=== PATIENT | male | born 1980 | race Caucasian/White ===

== ENCOUNTER 2020-02-24 02:08 | Inpatient (IN) | payer OTHER ==
[~2020-02-24] VITALS: Ht 172.7 cm; Wt 59.0 kg
[2020-02-24 14:44] LABS: BUN/CREATININE RATIO 32 (0-10)
[2020-02-25 04:58] LABS: HEMOGLOBIN 10.8 gm/dl (14.0-17.5); RED BLOOD COUNT 3.28 M/UL (4.20-5.50); WHITE BLOOD COUNT 7.1 K/UL (4.5-11.0)
[2020-02-25 05:17] LABS: BUN/CREATININE RATIO 24 (0-10)
[2020-02-25 11:01] LABS: BORDETELLA PARAPERTUSSIS Not Detected (Not Detectd); BORDETELLA PERTUSSIS Not Detected (Not Detectd); CHLAMYDIA PNEUMONIAE Not Detected (Not Detectd); CORONAVIRUS HKU1 Not Detected (Not Detectd); CORONAVIRUS NL63 Not Detected (Not Detectd); CORONAVIRUS OC43 Not Detected (Not Detectd); CORONOAVIRUS 229E Not Detected (Not Detectd); HUMAN METAPNEUMOVIRUS Not Detected (Not Detectd); HUMAN RHINOVIRUS/ENTEROVIRUS Not Detected (Not Detectd); INFLUENZA A Not Detected (Not Detectd); INFLUENZA B Not Detected (Not Detectd); MYCOPLASMA PNEUMONIAE Not Detected (Not Detectd); PARAINFLUENZA VIRUS 1 Not Detected (Not Detectd); PARAINFLUENZA VIRUS 2 Not Detected (Not Detectd); PARAINFLUENZA VIRUS 3 Not Detected (Not Detectd); PARAINFLUENZA VIRUS 4 Not Detected (Not Detectd); RESPIRATORY SYNCYTIAL VIRUS Not Detected (Not Detectd)
[2020-02-25 12:07] LABS: SARS-CoV-2 NOT DETECTED (Not Detectd)
[2020-02-26 07:53] LABS: HEMOGLOBIN 11.4 gm/dl (14.0-17.5); RED BLOOD COUNT 3.47 M/UL (4.20-5.50); WHITE BLOOD COUNT 8.2 K/UL (4.5-11.0)
[2020-02-26 08:08] LABS: BUN/CREATININE RATIO 19 (0-10)
--- NOTE | 2020-02-26 20:07 | NUR ---
NOTIFIED DR DONALDSON THAT PT'S BLOOD CULTURES GROWING GRAM POSITIVE COCCI. PT CURRENTLEY RECIEVING VANCOMYCIN AND ZOSYN. RECIEVED NO NEW ORDERS. WILL CONTINUE TO MONITOR.
[2020-02-27 06:38] LABS: HEMOGLOBIN 11.4 gm/dl (14.0-17.5); RED BLOOD COUNT 3.49 M/UL (4.20-5.50)
[2020-02-27 06:57] LABS: BUN/CREATININE RATIO 21 (0-10)
[2020-02-28 06:42] LABS: HEMOGLOBIN 11.2 gm/dl (14.0-17.5); RED BLOOD COUNT 3.39 M/UL (4.20-5.50); WHITE BLOOD COUNT 7.9 K/UL (4.5-11.0)
[2020-02-28 06:50] LABS: BUN/CREATININE RATIO 25 (0-10)
[2020-02-29 06:33] LABS: HEMOGLOBIN 11.4 gm/dl (14.0-17.5); RED BLOOD COUNT 3.43 M/UL (4.20-5.50); WHITE BLOOD COUNT 7.9 K/UL (4.5-11.0)
[2020-02-29 06:53] LABS: BUN/CREATININE RATIO 25 (0-10)
[2020-03-01 06:26] LABS: HEMOGLOBIN 10.9 gm/dl (14.0-17.5); RED BLOOD COUNT 3.29 M/UL (4.20-5.50)
[2020-03-01 06:52] LABS: BUN/CREATININE RATIO 28 (0-10)
[2020-03-02 04:15] LABS: HEMOGLOBIN 9.6 gm/dl (14.0-17.5)
[2020-03-02 04:18] LABS: RED BLOOD COUNT 2.94 M/UL (4.20-5.50); WHITE BLOOD COUNT 7.7 K/UL (4.5-11.0)
[2020-03-03 04:14] LABS: HEMOGLOBIN 9.3 gm/dl (14.0-17.5); RED BLOOD COUNT 2.83 M/UL (4.20-5.50); WHITE BLOOD COUNT 7.7 K/UL (4.5-11.0)
[2020-03-04 03:38] LABS: BUN/CREATININE RATIO 21 (0-10)
[2020-03-04 16:13] LABS: HEMOGLOBIN 10.6 gm/dl (14.0-17.5); WHITE BLOOD COUNT 8.1 K/UL (4.5-11.0)
[2020-03-04 16:14] LABS: RED BLOOD COUNT 3.19 M/UL (4.20-5.50)
[2020-03-05 08:26] LABS: HEMOGLOBIN 10.4 gm/dl (14.0-17.5); RED BLOOD COUNT 3.18 M/UL (4.20-5.50); WHITE BLOOD COUNT 6.8 K/UL (4.5-11.0)
[2020-03-05 08:47] LABS: BUN/CREATININE RATIO 21 (0-10)
[2020-03-06 06:55] LABS: BUN/CREATININE RATIO 19 (0-10)
[2020-03-07 04:34] LABS: BUN/CREATININE RATIO 19 (0-10)
--- NOTE | 2020-03-08 12:23 | NUR ---
03/08/2020 1210 BEING VERY DEMANDING AND USING FOUL LANGUAGE, VERY DISRESPECTFUL AND MAKING RUDE COMMENTS TO STAFF, DEMANDING MORE PAIN MEDS. 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
[2020-03-09 05:21] LABS: RED BLOOD COUNT 2.56 M/UL (4.20-5.50); WHITE BLOOD COUNT 5.7 K/UL (4.5-11.0)
[2020-03-09 05:24] LABS: HEMOGLOBIN 8.4 gm/dl (14.0-17.5)
[2020-03-09 05:45] LABS: BUN/CREATININE RATIO 16 (0-10)
[2020-03-10 07:35] LABS: HEMOGLOBIN 8.7 gm/dl (14.0-17.5); RED BLOOD COUNT 2.76 M/UL (4.20-5.50); WHITE BLOOD COUNT 6.1 K/UL (4.5-11.0)
[2020-03-10 07:52] LABS: BUN/CREATININE RATIO 16 (0-10)
[2020-03-10] MEDS ORDERED: CUBICIN 500 MG500 MG IV (19:37)
[2020-03-10] MEDS ORDERED: CEFEPIME HCL2 GM IV (19:37)
[2020-03-11 03:45] LABS: RED BLOOD COUNT 2.71 M/UL (4.20-5.50); WHITE BLOOD COUNT 5.9 K/UL (4.5-11.0)
[2020-03-11 04:17] LABS: BUN/CREATININE RATIO 19 (0-10)
[2020-03-11] MEDS ORDERED: FERROUS SULFAT325 M2 PO (11:10)
[2020-03-11] MEDS ORDERED: SENNA LAX8.6 MG PO (11:10)
[2020-03-11] MEDS ORDERED: THERAGRAN M TAB1 EA PO (11:10)
[2020-03-11] MEDS ORDERED: PERCOCET 5/325 T1 EA PO (11:10)
[2020-03-11] MEDS ORDERED: LOPRESSOR 25 MG25 MG PO (11:10)
[2020-03-12 04:02] LABS: HEMOGLOBIN 9.2 gm/dl (14.0-17.5); RED BLOOD COUNT 2.8 M/UL (4.20-5.50); WHITE BLOOD COUNT 6.4 K/UL (4.5-11.0)
[2020-03-12 04:25] LABS: BUN/CREATININE RATIO 17 (0-10)
[2020-03-15 06:16] LABS: BUN/CREATININE RATIO 16 (0-10)
[2020-03-15 06:42] LABS: HEMOGLOBIN 8.5 gm/dl (14.0-17.5); RED BLOOD COUNT 2.69 M/UL (4.20-5.50); WHITE BLOOD COUNT 5.3 K/UL (4.5-11.0)
[2020-03-17 05:04] LABS: HEMOGLOBIN 9.6 gm/dl (14.0-17.5); WHITE BLOOD COUNT 5.4 K/UL (4.5-11.0)
[2020-03-17 05:11] LABS: BUN/CREATININE RATIO 19 (0-10)
[2020-03-17 05:14] LABS: RED BLOOD COUNT 2.99 M/UL (4.20-5.50)
[2020-03-19] MEDS ORDERED: PERCOCET 5-3251 EACH PO (09:41)
--- NOTE | 2020-03-19 11:45 | NUR ---
ATTEMPTED TO GIVE REPORT ADMITTING NURSE WILL CALL BACK UNABLE TO GET AT THIS TIME
--- NOTE | 2020-03-19 13:34 | NUR ---
REPORT GIVEN TO GWEN PATIÑO NURSE AT [facility]
--- NOTE | 2020-03-19 14:12 | NUR ---
PATIENT UNABLE TO SIT IN CHAIR FOR A LONG PERIOD OF TIME.
== END 2020-03-19 22:00 | DRG 853 ==
LOC: PROG CARE 12:09 → M/S 12:09 → CCU 02-29 18:09 → PROG CARE 03-01 23:49 → M/S 03-05 19:22
PROVIDERS: Family Medicine; Internal Medicine; Internal Medicine Infectious Disease; Physician Assistant Medical; ADMIT Internal Medicine
PROC: B24BZZZ Ultrasonography of Heart with Aorta (ICD-10-PCS; principal; 2020-02-25)
PROC: 0SG30K1 Fusion of Lumbosacral Joint with Nonautologous Tissue Substitute, Posterior Approach, Posterior Column, Open Approach (ICD-10-PCS; 2020-03-03)
PROC: 0SBF0ZZ Excision of Right Ankle Joint, Open Approach (ICD-10-PCS; 2020-03-03)
PROC: 0SG00K1 Fusion of Lumbar Vertebral Joint with Nonautologous Tissue Substitute, Posterior Approach, Posterior Column, Open Approach (ICD-10-PCS; 2020-03-03)
PROC: 01NB0ZZ Release Lumbar Nerve, Open Approach (ICD-10-PCS; 2020-03-03)
PROC: 0SB20ZZ Excision of Lumbar Vertebral Disc, Open Approach (ICD-10-PCS; 2020-03-03)
PROC: 02HV33Z Insertion of Infusion Device into Superior Vena Cava, Percutaneous Approach (ICD-10-PCS; 2020-03-13)
PROC: B548ZZA Ultrasonography of Superior Vena Cava, Guidance (ICD-10-PCS; 2020-03-13)
DX: A41.02 Sepsis due to Methicillin resistant Staphylococcus aureus (principal); G06.1 Intraspinal abscess and granuloma; J18.9 Pneumonia, unspecified organism; M46.27 Osteomyelitis of vertebra, lumbosacral region; M00.071 Staphylococcal arthritis, right ankle and foot; N17.9 Acute kidney failure, unspecified; E87.2 Acidosis; Z20.822 Contact with and (suspected) exposure to COVID-19; B95.62 Methicillin resistant Staphylococcus aureus infection as the cause of diseases classified elsewhere; M46.47 Discitis, unspecified, lumbosacral region; F19.10 Other psychoactive substance abuse, uncomplicated; F17.210 Nicotine dependence, cigarettes, uncomplicated; R00.0 Tachycardia, unspecified; D64.9 Anemia, unspecified; F12.90 Cannabis use, unspecified, uncomplicated; F41.9 Anxiety disorder, unspecified; K59.00 Constipation, unspecified; M48.061 Spinal stenosis, lumbar region without neurogenic claudication; D50.9 Iron deficiency anemia, unspecified; G89.29 Other chronic pain; Z59.0 Homelessness; Z89.011 Acquired absence of right thumb; Z98.52 Vasectomy status; E87.6 Hypokalemia; G96.12 Meningeal adhesions (cerebral) (spinal)
CPT/HCPCS: ECHO; 36415; 71045; 71275; 72100; 72131; 72156; 72157; 72158; 73610; 73701; 73720; 74018; 76000; 80048; 80053; 80202; 82550; 82553; 82607; 82728; 82746; 82962; 83540; 83550; 83605; 83735; 84443; 84484; 84550; 85025; 85027; 85379; 85652; 86140; 86850; 86900; 86901; 87040; 87070; 87077; 87186; 87205; 87633; 87635; 93005; 93306; 93971; 94640; 94664; 94760; 97110-GP-CQ; 97116; 97116-GP-CQ; 97163; 97166; 97530; 97530-GP-CQ; 97535; A9577; C1713; C1751; C1762; J0692; J0878; J1040; J1170; J1650; J2001; J2060; J2250; J2270; J2405; J2543; J2704; J2765; J3010; J3370; J7030; J7040; J7050; J7070; J7120; Q9967